=== PATIENT | male | born 1960 | race Caucasian/White ===

== ENCOUNTER 2021-08-22 10:49 | Outpatient (REF) | payer BC, SELFPAY ==
[2021-08-22 14:17] LABS: MANUAL DIFF FLAG NO
[2021-08-22 14:23] LABS: Basophils Percent Auto 0.8 % (0-2); Eosinophils Absolute Auto 0.1 X10*3/uL (0.0-0.4); Hematocrit 45.8 % (42-52); Imm Gran Abs Auto 0.01 X10*3/uL (0.00-0.03); Imm Gran Pct Auto 0.3 % (0.0-0.4); Lymphocytes Absolute Auto 1.3 X10*3/uL (1.2-4.9); Lymphocytes Percent Auto 31.5 % (20-40); Mean Corpuscular HGB Conc 32.8 g/dl (31.0-36.0); Mean Corpuscular Hemoglobin 31.2 pg (27.0-33.0); Mean Corpuscular Volume 95.2 fL (80-98); Mean Platelet Volume 9.8 fL (9.4-12.4); Monocytes Absolute Auto 0.4 X10*3/uL (0.1-1.2); Monocytes Percent Auto 9.8 % (2-11); Neutrophils Absolute Auto 2.2 X10*3/uL (2.0-8.3); Neutrophils Percent Auto 54.6 % (45-73); Platelet Count 188 X10*3/uL (160-400); Red Blood Count 4.81 X10*6/uL (4.60-5.80); Red Cell Distribution Width 12.8 % (11.0-16.0)
[2021-08-22 14:46] LABS: Alanine Aminotransferase 20 U/L (0-40); Albumin Level 4.5 g/dL (3.5-5.0); Alkaline Phosphatase 66 U/L (39-117); Anion Gap 10 (12-20); Aspartate Amino Transferase 22 U/L (5-37); Bilirubin Total 2.3 mg/dL (0.0-1.0); Blood Urea Nitrogen 12 mg/dL (9-16); Calcium 9.5 mg/dL (8.4-10.2); Carbon Dioxide 30 mmol/L (22-29); Chloride 104 mmol/L (96-108); Cholesterol 173 mg/dL; Estimated Glomerular Filt Rate > 60; Glucose Fasting 99 mg/dL (60-99); HDL Cholesterol 59 mg/dL; LDL Cholesterol Calculated 101 mg/dl; Potassium 4.2 mmol/L (3.3-5.1); Sodium 140 mmol/L (135-145); Total Protein 7.3 g/dL (6.5-8.0); Triglycerides 67 mg/dL
[2021-08-22 15:09] LABS: Prostate Specific Antigen Scr 3.14 ng/mL (<0.05-4.0)
[2021-08-22 15:32] LABS: Erythrocyte Sedimentation Rate 5 MM/HR (0-15)
== END 2021-08-22 10:50 | disposition home or self-care (01) ==
LOC: HO.WFDLDS 10:49
PROVIDERS: Visit Provider Family Medicine
DX: Z00.00 Encounter for general adult medical examination without abnormal findings (principal); Z12.5 Encounter for screening for malignant neoplasm of prostate; M25.511 Pain in right shoulder; M25.512 Pain in left shoulder
CPT/HCPCS: 36415; 80053; 80061; 84153; 84443; 85025; 85652

== ENCOUNTER → 2022-12-17 12:18 | Outpatient (BNVA) | payer BC, SELFPAY | PROVIDERS: PCP Family Medicine; Visit Provider Physician Assistant | DX: Z13.89 Encounter for screening for other disorder (principal) ==

== ENCOUNTER 2024-09-21 08:08 | Day surgery (SDC) | payer BC, SELFPAY ==
--- NOTE | 2024-09-20 12:48 | HO.ANESPROP2 ---
Documented by User: Katty Strickland NP 09/20/24 12:48 HPI - Anesthesia Eval Consult details Narrative: 64yo M for Colonoscopy PMFSH Active Problems Active Problems: All Active Problems History of adenomatous polyp of colon (Acute) Strain of right trapezius muscle (Acute) Cerumen impaction (Acute) Elevated blood pressure reading (Acute) Right shoulder pain (Acute) Hearing loss (Acute) Screening for colon cancer (Acute) Screening for prostate cancer (Acute) Adult general medical exam (Acute) Bilateral shoulder pain (Acute) Laboratory exam ordered as part of routine general medical examination (Acute) Past Medical History Medical History Amputation of left index finger Family History Family History Father Cancer Surgical History Surgical History H/O colonoscopy History of amputation of finger of left hand Hx of tonsillectomy Social History Social History Housing: House Patient Tobacco Use Status: Never used Tobacco e-Cigarette/Vaping Use: Never Used Second Hand Smoke Exposure: No Advance Directives: No Advance Directives Information Provided: Yes service: No Current occupational status: employed Current occupation: construction Cognitive needs: No Hearing needs: Yes Meds Allergies Allergy/AdvReac Type Severity Reaction Status Date / Time No Known Allergies Allergy Verified 12/17/22 12:20 Assessment and Plan Assessment Anesthesia Assessment: Chart Reviewed Documented by User: Hattie Lei MD 09/21/24 09:29 PMFSH Past Medical History Medical History Amputation of left index finger Family History Family History Father Cancer Surgical History Surgical History H/O colonoscopy History of amputation of finger of left hand Hx of tonsillectomy History of Problems with Anesthesia: No Social History Social History Housing: House Patient Tobacco Use Status: Never used Tobacco e-Cigarette/Vaping Use: Never Used Second Hand Smoke Exposure: No Advance Directives: No Advance Directives Information Provided: Yes service: No Current occupational status: employed Current occupation: construction Cognitive needs: No Hearing needs: Yes Meds Allergies Allergy/AdvReac Type Severity Reaction Status Date / Time No Known Allergies Allergy Verified 12/17/22 12:20 Exam Airway Mallampati Class: III TM Dist: >3cm Neck ROM: Full Loose/Missing/Broken Teeth: No Heart: RRR Lungs: CTA Assessment and Plan Assessment Anesthesia Assessment: Anesthesia Plan Discussed Final Anesthetic Review History of Problems with Anesthesia: No NPO: Yes ASA Class: II Final Preanesthetic Review: Meds/Allgs Chart Reviewed, Consent Obtained/Reviewed and Anes Risks/Benef Reviewed Patient Risk: Low Procedure Risk: Low Anesthetic Plan Anesthetic Plan: MAC: Disposition: Standard PACU
[2024-09-21] MEDS: Sodium Phosphate,Mono-Dibasic 133 ML ENEMA PR (09:31)
[2024-09-21 09:38] VITALS: BP 163/81; PULSE 63; RESP 16; TEMP 36.8; O2SAT 98; BMI 28.7
[2024-09-21] MEDS: Lactated Ringers 1,000 ML 100 ML IVCONT (09:54)
--- NOTE | 2024-09-21 09:55 | P.HPSUR_ITS ---
Pre-Procedural Eval Section A - 24 Hr Update-Section A only Date of Service: 09/21/24 Section B - Complete if H&P > 30 days Chief Complaint: Encounter for screening for malignant neoplasm of Relevant Family History (Specify if Yes): No Relevant Social History: None Present Medications: see Short Stay Collaborative assessment Medical History: Significant History (Amputation of left index finger) History of Previous Operations: Relevant previous surgery/procedure and date(s) (H/O colonoscopy History of amputation of finger of left hand Hx of tonsillectomy) Allergies: Allergies Allergy/AdvReac Type Severity Reaction Status Date / Time No Known Allergies Allergy Verified 09/21/24 09:36 Review of Systems Sugical H&P ROS: Negative: Constitution, Cardiovascular, Respiratory, Neurological, Psychiatric, Hem-Onc, Allergic/Immunologic, Gastrointestinal, Ge nitourinary, Musculoskeletal, Integumentary, Endocrine and Eyes/Ears/Nose/Throat Exam Surgical H&P Exam: Normal: HEENT, Normal: Heart, Normal: Lungs, Normal: Extremities, Normal: Abdomen, Normal: Skin and Normal: Neurological Plan Diagnosis/Plan: Unchanged I have reviewed the history and physical and performed a pertinent physical examination on my patient. No changes have occurred unless specified. Time Spent With Patient Time: Total time managing care of this patient today ____ minutes.
--- NOTE | 2024-09-21 10:30 | HO.OPN-COLON ---
Colonoscopy Operative Note Operative Note Date of Service: 09/21/24 Narrative: Operative Information Procedure Description: Colonoscopy Indication: screening Anesthesia: MAC COLONOSCOPY Instrument: Olympus variable stiffness pediatric scope 190L Colonoscopy Monitoring: Vital signs and clinical assessment, continuous EKG monitoring, Pulse oximetry, Carbon Dioxide monitoring and blood pressure monitoring were done throughout the procedure. Colon withdrawal time was 16 minutes. Procedure: The patient was placed in the left lateral decubitis position and pre-procedure medications were administered. After a digital rectal examination of the ano-rectum, the video colonoscope was inserted into the rectum and advanced through the colon to the cecum/TI. The colonoscope was slowly withdrawn in a retrograde panoramic fashion and the colon mucosa was carefully examined including a retroflexed view of the rectum. Findings and interventions are described below. Procedure Difficulty: easy Findings: Terminal Ileum-normal Cecum:normal Ascending Colon: normal Transverse Colon -normal Descending Colon:normal Sigmoid Colon: mild diverticulosis Rectum: Retroflexion with small internal hemorrhoids seen, grade I, 12-14 mm semi pedunculated polyp in proximal rectum, injected with 1 cc of epinephrine then removed with cold snare with one clip applied to the base Anorectum - normal Intervention: epinephrine injection, cold snare, clip Colon preparation: [place] Bowel Preparation Scale Right colon; 1-2 Transverse colon: 2 Left colon; 3 (0 = Unprepared colon segment with mucosa not seen due to solid stool that cannot be cleared. 1 = Portion of mucosa of the colon segment seen, but other areas of the colon segment not well seen due to staining, residual stool and/or opaque liquid. 2 = Minor amount of residual staining, small fragments of stool and/or opaque liquid, but mucosa of colon segment seen well. 3 = Entire mucosa of colon segment seen well with no residual staining, small fragments of stool or opaque liquid) Impression and Post Procedure Diagnosis: diverticulosis colon polyp internal hemorrhoids Plan: High fiber diet leaflet Avoid straining at stool, epsom salts and sitz bath, anusol supps or cream Repeat Colonoscopy in 2-3 years or earlier if clinically indicated Above findings were reviewed with the patient and relevant handouts were provided if indicated.
[2024-09-21 10:35] VITALS: BP 113/74; PULSE 61; RESP 18; TEMP 36.1; O2SAT 98
[2024-09-21 10:49] VITALS: BP 125/75; PULSE 62; RESP 16; O2SAT 98
[2024-09-21 11:03] VITALS: BP 134/80; PULSE 56; RESP 16; TEMP 36.3; O2SAT 99
== END 2024-09-21 11:36 | disposition home or self-care (01) ==
PROVIDERS: PCP Family Medicine; Visit Provider Internal Medicine Gastroenterology
PROC: 0DJD8ZZ Inspection of Lower Intestinal Tract, Via Natural or Artificial Opening Endoscopic (ICD-10-PCS; CPT 45378; principal; 2024-09-21 10:00)
DX: Z12.11 Encounter for screening for malignant neoplasm of colon (principal); D12.8 Benign neoplasm of rectum; K57.30 Diverticulosis of large intestine without perforation or abscess without bleeding; K64.0 First degree hemorrhoids; Z86.0101 Personal history of adenomatous and serrated colon polyps
CPT/HCPCS: 45385; 45381; 88305; J2003; J2704

== ENCOUNTER → 2024-09-21 08:08 | Outpatient (BNV) | payer BC, SELFPAY | PROVIDERS: PCP Family Medicine; Visit Provider Internal Medicine Gastroenterology | DX: Z12.11 Encounter for screening for malignant neoplasm of colon (principal); D12.8 Benign neoplasm of rectum; K57.30 Diverticulosis of large intestine without perforation or abscess without bleeding; K64.0 First degree hemorrhoids | CPT/HCPCS: 45381; 45385 ==

== ENCOUNTER 2025-02-03 15:42 | Outpatient (AMB) | payer MEDICARE, BC, SELFPAY ==
--- NOTE | 2025-02-03 15:48 | A.OFFPC_ITS ---
Vital Signs 02/03/25 15:52 02/03/25 15:56 02/03/25 16:39 Height 6 ft Weight 214 lb BMI 29.0 BP 156/86 H 148/84 H 136/82 Blood Pressure Location Rt brachial Rt brachial Rt brachial Position Sitting Sitting Sitting Respiration 14 Pulse 71 Pulse Source Pulse Oximeter Pulse Oximetry (%) 98 Oxygen Delivery Method Room Air Intake Visit Reasons: Annual PE Intake Note: Physical Hiv Cts Specialist Required: No Allergies No Known Allergies Allergy (Verified 02/03/25 15:49) Medication List - Last Reconciled 02/03/25 by Kirt Humphreys MD No Known Home Meds Tobacco use date assessed: 02/03/25 Fall risk assessment: No Falls in past year Last assessed Fall Risk: 02/03/25 Dental Screening Dental Screen Date: 02/03/25 Did you have a dental visit in the last 12 months?: Yes Did you have a dental problem in the last 6 months where you did not have access to dental care?: No Was dental information given to patient?: Patient has dentist HPI Annual PE HPI Details 64 y/o male presents for a CPE with f/u labs and health maintenance. No recent labs to review. Blood pressure today elevated at 156/86, 71p. BP upon relaxation is 136/80. He reports hearing changes/hearing loss. He works as a line construction supervisor. He notes he could exercise more often. [facility] Medical History Amputation of left index finger Surgical History H/O colonoscopy History of amputation of finger of left hand Hx of tonsillectomy Family History (Updated 02/03/25 @ 15:51 by Shantel Leonardo CMA) Father Cancer Social History (Updated 02/03/25 @ 15:51 by Shantel Leonardo CMA) Housing: House Are you a primary youth career specialist to a significant other at home: No Do you presently have visiting nurse or other home services: No Alcohol intake: current Alcohol intake frequency: does not drink Patient Tobacco Use Status: Never used Tobacco e-Cigarette/Vaping Use: Never Used Second Hand Smoke Exposure: No service: No Current occupational status: employed Current occupation: construction Current occupational exposures/hazards: No Cognitive needs: No Hearing needs: Yes Vision needs: No Questionnaire PHQ-9 Over the last 2 weeks, how often have you been bothered by any of the following problems? 1. Little interest or pleasure in doing things: not at all 2. Feeling down, depressed, or hopeless: not at all 3. Trouble falling or staying asleep, or sleeping too much: not at all 4. Feeling tired or having little energy: not at all 5. Poor appetite or overeating: not at all 6. Feeling bad about yourself - or that you are a failure or have let yourself or your family down: not at all 7. Trouble concentrating on things, such as reading the newspaper or watching television: not at all 8. Moving or speaking so slowly that other people could have noticed. Or the opposite - being so fidgety or restless that you have been moving around a lot more than usual: not at all 9. Thoughts that you would be better off or of hurting yourself in some way: not at all Total score: 0 Depression Screening Interpretation: Negative Depression Screening Done: Yes 41602 - PHQ-9 Billing: Yes Source: Developed by Drs. Arvind Saha, Silvia Chinchilla, Jorge Renteria and colleagues, with an educational jovana from [employer]. Thrive Questionnaire Date Thrive assessed: 02/03/25 I am a: Patient What is your living situation today?: I have a steady place to live Within the past 12 months, did the food you bought not last and you didn't have the money to get more?: Never true Within the past 12 months, did you worry whether your food would run out before you got money to buy more?: Never true Do you have trouble paying for medicines?: No Do you have trouble getting transportation to medical appointments?: No Do you have trouble paying your heating and electricity bill?: No Do you have trouble taking care of your child, family member or friend?: No Do you have trouble with day-to-day activities such as bathing, preparing meals, shopping, managing finances, etc.?: No Are you currently unemployed and looking for a job?: No Are you interested in more education?: No Please select the resources that you would like help with: None Currently or been in a relationship where the following occur: No concerns reported THRIVE Score: 0 AUDIT C Alcohol Use Questionnaire (AUDIT-C) 1. How often do you have a drink containing alcohol?: 2-3 times a week 2. How many drinks containing alcohol do you have on a typical day when you are drinking?: 1 or 2 3. How often do you have six or more drinks on one occasion?: Never Total Score: 3 DAVID-7 AMB Questionnaire DAVID-7 Date DAVID - 7 assessed: 02/03/25 Feeling nervous, anxious, or on edge: 0 = Not at all Not being able to stop or control worryin = Not at all Worrying too much about different things: 0 = Not at all Trouble relaxin = Not at all Being so restless that it is hard to sit still: 0 = Not at all Becoming easily annoyed or irritable: 0 = Not at all Feeling afraid as if something awful might happen: 0 = Not at all Total DAVID-7 score (0-4 normal; 5-9 mild; 10-14 moderate; 15-21 severe): 0 Source: Developed by Drs. Arvind Saha, Silvia Chinchilla, Jorge Renteria and colleagues, with an educational jovana from [employer]. DAVID-7 Assessment Billing DAVID-7 Assessment Tool: DAVID-7 Assessment 16022 Review of Systems Const Denies chills, Denies fatigue, Denies fever(s), Denies headache(s) and Denies weakness Eyes Denies change in vision ENT Denies dizziness, Denies headache(s), Denies hearing loss, Denies nasal congestion, Denies sinus pain, Denies sinus pressure and Denies sore throat Card Denies chest pain, Denies lightheadedness, Denies dyspnea and Denies other (palpitations) Resp Denies cough, Denies dyspnea and Denies wheezing GI Denies abdominal pain, Denies melena, Denies hematochezia, Denies change in bowel habits, Denies dyspepsia and Denies nausea Denies hematuria and Denies dysuria Musc Denies abnormal gait, Denies myalgias, Denies arthralgias, Denies numbness and Denies tingling Skin/Breast Denies rash, Denies unusual bruising and Denies wounds Neuro Denies abnormal gait, Denies dizziness, Denies headache(s), Denies memory loss, Denies numbness, Denies Sensory deficit (Neuro), Denies tingling and Denies weakness Psych Denies anxiety, Denies depression and Denies memory loss Endo Denies cold intolerance, Denies fatigue, Denies heat intolerance, Denies polydipsia and Denies polyuria Sanya/Lymph Denies easy bleeding and Denies easy bruising Aller/Immun Denies wheezing Physical exam (Primary Care) Vital Signs: Last Vital Signs Pulse 71 02/03/25 15:52 Resp 14 02/03/25 15:52 BP 148/84 H 02/03/25 15:56 Pulse Ox 98 02/03/25 15:52 Oxygen Delivery Method Room Air 02/03/25 15:52 BMI result Body Mass Index 29.0 Tobacco/Smoking Status: Tobacco use Status Tobacco use date assessed 02/03/25 02/03/25 15:52 Patient Tobacco Use Status Never used Tobacco 02/03/25 15:52 e-Cigarette/Vaping Use Never Used 02/03/25 15:52 PHQ-9: PHQ-9 Score PHQ-9: Total score 0 02/03/25 15:52 Depression Screening Interpretation: Negative Thrive Assessment: Date of Thrive Assessment Date Thrive assessed 02/03/25 02/03/25 15:52 Currently or been in a relationship where the following occur: No concerns reported Const General: no acute distress, well developed, alert and awake Nutritional Appearance: well nourished Orientation/consciousness: patient oriented x3 HENMT Head: Yes normocephalic and Yes atraumatic Ears: hearing grossly normal bilaterally and TM's normal bilaterally General nose exam: Normal external nose present and Normal nares present Mouth: Normal oral and palatal mucosa present and moist mucous membranes Teeth and gingiva: dentition normal Throat: Yes posterior oropharynx normal Eyes General: appearance normal, both eyes and all related structures Pupils: Equal, round and reactive pupils present and Pupil accommodation reflex normal EOM: EOMs intact bilaterally Neck Neck: Yes normal visual inspection, Yes no lymphadenopathy and Yes trachea midline Thyroid: Thyroid normal Carotids: no bruits Lymphatic: no lymphadenopathy noted Chest Chest palpation & inspection: normal inspection of the chest Resp Effort & Inspection: normal respiratory effort Auscultation: clear to auscultation bilaterally Cardio Rate: regular rate Rhythm: regular rhythm Heart sounds: S1 normal heart sound present, S2 normal heart sound present, no gallops, no murmurs and no rubs Bruits: no abdominal aortic bruits and no carotid bruits GI Palpation (GI): No Abdominal aortic bruit present, Soft to palpation, nontender, No hepatosplenomegaly present and No Rebound tenderness present Auscultation: normal bowel sounds General: Yes no CVA tenderness Back/Spine/Pelvis Back: no CVA tenderness Cervical Spine: cervical ROM normal and No Cervical spine tenderness Thoracic/Lumbar Spine: thoraco-lumbar ROM normal, No pain with thoraco-lumbar ROM, No thoracic spinal tenderness and No lumbar spinal tenderness Skin Other: 1cm melanotic lesion with irregular borders and surrounding melanotic macule Lesions: no lesions Rashes: no rashes Trauma: no lacerations or abrasions Wounds: no wounds Nails: normal Neuro General: patient oriented x3 Cranial nerves: Yes Equal, round and reactive pupils present Cognition (Neuro): normal cognition Gait exam (Neuro): Normal gait present Motor exam (neuro): 5/5 motor strength present throughout Sensory Exam: No Sensory deficit (Neuro) Deep tendon reflexes (DTR's): Right patellar reflex intensity grade: 2+ and Left patellar reflex intensity grade: 2+ Extrem General: Yes normal to inspection and No edema Psych Appearance: grossly normal Affect: normal affect Attitude: cooperative Thought process: Normal thought process present Coding Level of Care Code Est Pt Prev Care >65y(06006) Diagnoses Adult general medical exam Z00.00 Elevated blood pressure reading R03.0 Screening for prostate cancer Z12.5 Screening for colon cancer Z12.11 Hearing loss H91.90 Neoplasm of uncertain behavior of skin D48.5 Additional Codes DAVID-7 Assessment Billing - DAVID-7 Assessment Tool: DAVID-7 Assessment 70449 ([id number]) PHQ-9 - 01970 - PHQ-9 Billing: Yes ([id number]) Assessment & Plan Assessment & Plan (1) Adult general medical exam: Code(s): Z00.00 - Encounter for general adult medical examination without abnormal findings Category: Medical Plan: 64-year-old?male?presents?for?complete?physical?exam Encouraged?healthy?diet?with?active?lifestyle?and?plenty?of?exercise (2) Elevated blood pressure reading: Code(s): R03.0 - Elevated blood-pressure reading, without diagnosis of hypertension Category: Medical Plan: Blood?pressure?is?elevated?in?prehypertensive?range?after?relaxation. Will?have?follow-up?in?a?few?months?continue?monitoring (3) Screening for prostate cancer: Code(s): Z12.5 - Encounter for screening for malignant neoplasm of prostate Category: Medical Plan: Check?PSA (4) Screening for colon cancer: Code(s): Z12.11 - Encounter for screening for malignant neoplasm of colon Category: Medical Plan: Recent?colonoscopy?and?history?of?polyps He?was?advised?to?follow-up?in?about?2?years Follow-up?with?GI?as?recommended (5) Hearing loss: Code(s): H91.90 - Unspecified hearing loss, unspecified ear Category: Medical Plan: Significant?hearing?loss?in?left?ear?and?some?in?right He?says?he?has?hearing?aids?but?they?are?not?working. Advised?him?to?call?his?hearing?aid?supplier,?[employer]?for?re-evaluation (6) Neoplasm of uncertain behavior of skin: Code(s): D48.5 - Neoplasm of uncertain behavior of skin Category: Medical Plan: Dark?m elanotic?lesion?approximately?1?cm?in?diameter?with?irregular?borders?and?surrou nded?by color?variegation?and?later?melanotic?macule. Referred?to?Dermatology Orders: Orders Complete Blood Count Auto Diff 02/02/25 Z00.00 - Encounter for general adult medical examination without abnormal findings Microalbumin, Random (w Creat) 02/02/25 I10 - Essential (primary) hypertension Comprehensive [place]. Panel Fast 02/02/25 Z00.00 - Encounter for general adult medical examination without abnormal findings Lipid Panel 02/02/25 Z00.00 - Encounter for general adult medical examination without abnormal findings Prostate Specific Antigen Scr 02/02/25 Z12.5 - Encounter for screening for malignant neoplasm of prostate TSH reflex Free T4 02/02/25 Z00.00 - Encounter for general adult medical examination without abnormal findings UA and rflx microscopic 02/02/25 Z00.00 - Encounter for general adult medical examination without abnormal findings Referrals Dermatology Referral D48.5 - Neoplasm of uncertain behavior of skin
[2025-02-03 15:52] VITALS: BP 156/86; PULSE 71; RESP 14; O2SAT 98; BMI 29.0
[2025-02-03 15:56] VITALS: BP 148/84
[2025-02-03 16:39] VITALS: BP 136/82
== END 2025-02-03 16:38 | disposition home or self-care (01) ==
LOC: HO.HMCFM 15:43
PROVIDERS: PCP Family Medicine; Visit Provider Family Medicine
DX: Z00.00 Encounter for general adult medical examination without abnormal findings (principal); R03.0 Elevated blood-pressure reading, without diagnosis of hypertension; Z12.5 Encounter for screening for malignant neoplasm of prostate; Z12.11 Encounter for screening for malignant neoplasm of colon; H91.93 Unspecified hearing loss, bilateral; D48.5 Neoplasm of uncertain behavior of skin

== ENCOUNTER → 2025-02-03 15:42 | Outpatient (BNVA) | payer BC, SELFPAY | PROVIDERS: PCP Family Medicine; Visit Provider Family Medicine | DX: Z00.00 Encounter for general adult medical examination without abnormal findings (principal); R03.0 Elevated blood-pressure reading, without diagnosis of hypertension; H91.93 Unspecified hearing loss, bilateral; D48.5 Neoplasm of uncertain behavior of skin | CPT/HCPCS: 96127; 99397 ==

== ENCOUNTER 2025-02-07 08:05 | Outpatient (REF) | payer MEDICARE, BC, SELFPAY ==
[2025-02-07 11:22] LABS: MANUAL DIFF FLAG NO
[2025-02-07 11:25] LABS: Appearance Urine Clear; Color Urine Dark Yellow; Glucose Urine UA Negative (Negative); Leukocyte Esterase Urine Negative (Negative); Nitrite Urine Negative (Negative); PH 5.5 (5.0-9.0); Specific Gravity - Urine 1.025 (1.005-1.025); UMIC TRIGGER UA YES; Urine Blood Trace (Negative); Urine Ketones 15 mg/dL (Negative); Urine Protein Trace mg/dL (Neg-Trace)
[2025-02-07 11:27] LABS: Basophils Percent Auto 0.6 % (0-2); Eosinophils Absolute Auto 0.1 X10*3/uL (0.0-0.4); Eosinophils Percent Auto 3.9 % (0-4); Hematocrit 45.4 % (42.0-52.0); Hemoglobin 15.2 g/dl (14.0-18.0); Imm Gran Abs Auto 0.01 X10*3/uL (0.00-0.03); Imm Gran Pct Auto 0.3 % (0.0-0.4); Lymphocytes Percent Auto 27.3 % (20-40); Mean Corpuscular HGB Conc 33.5 g/dl (31.0-36.0); Mean Corpuscular Hemoglobin 31.2 pg (27.0-33.0); Mean Corpuscular Volume 93.2 fL (80.0-98.0); Mean Platelet Volume 9.7 fL (9.4-12.4); Monocytes Absolute Auto 0.4 X10*3/uL (0.1-1.2); Neutrophils Absolute Auto 2.1 x10*3/uL (2.0-8.3); Neutrophils Percent Auto 57.9 % (45-73); Platelet Count 184 X10*3/uL (160-400); Red Blood Count 4.87 X10*6/uL (4.60-5.80); White Blood Count 3.6 X10*3/uL (4.8-10.8)
[2025-02-07 11:29] LABS: Bacteria Urine None Seen (None Seen); Hyaline Casts Urine 0-2 /LPF (0-2); RBC Urine 0-2 /HPF (0-2); Squamous Epithelial Cell Urine 0-2 /HPF (0-2); WBC Urine 0-5 /HPF (0-5)
[2025-02-07 12:13] LABS: Creatinine Urine 295.19 mg/dL; Microalbum/Creatinine Ratio Ur 8.4 ug/mg cr (<30)
[2025-02-07 12:16] LABS: Alanine Aminotransferase 24 U/L (0-40); Albumin Level 4.1 g/dL (3.5-5.0); Alkaline Phosphatase 64 U/L (39-117); Anion Gap 9 (12-20); Aspartate Amino Transferase 25 U/L (5-37); Bilirubin Total 2.3 mg/dL (0.0-1.0); Blood Urea Nitrogen 12 mg/dL (9-16); Calcium 9.4 mg/dL (8.4-10.2); Carbon Dioxide 28 mmol/L (22-29); Chloride 107 mmol/L (96-108); Cholesterol 158 mg/dL (<200); Estimated Glomerular Filt Rate > 60; Glucose Fasting 102 mg/dL (60-99); HDL Cholesterol 48 mg/dL (>40); LDL Cholesterol Calculated 91 mg/dL (<100); Potassium 4.1 mmol/L (3.3-5.1); Sodium 140 mmol/L (135-145); Total Protein 7.1 g/dL (6.5-8.0); Triglycerides 95 mg/dL (<150)
[2025-02-07 12:17] LABS: Prostate Specific Antigen Scr 4.45 ng/mL (<0.05-4.0)
== END 2025-02-07 08:06 | disposition home or self-care (01) ==
LOC: HO.WFDLDS 08:05
PROVIDERS: Visit Provider Family Medicine
DX: Z00.00 Encounter for general adult medical examination without abnormal findings (principal); I10 Essential (primary) hypertension; Z13.220 Encounter for screening for lipoid disorders; Z13.29 Encounter for screening for other suspected endocrine disorder; Z13.9 Encounter for screening, unspecified; Z12.5 Encounter for screening for malignant neoplasm of prostate
CPT/HCPCS: 36415; 80053; 80061; 81001; 82043; 82570; 84153; 84443; 85025

== ENCOUNTER 2025-03-09 08:55 | Outpatient (AMB) | payer MEDICARE, BC, SELFPAY ==
--- NOTE | 2025-03-09 08:52 | MHC.PC.OV ---
Intake Visit Reasons: f/u CPE-labs via telemedicine Intake Note: patient is scheduled for lab review Allergies No Known Allergies Allergy (Verified 03/09/25 08:53) Medication List - Last Reconciled 03/09/25 by Kirt Humphreys MD No Known Home Meds Tobacco use date assessed: 02/03/25 Dental Screening Dental Screen Date: 02/03/25 HPI f/u CPE-labs via telemedicine HPI Details 64 y/o male presents to f/u labs via telemedicine. Labs drawn 02/07/25. Reviewed labs with pt. Fasting glucose 102. Triglycerides 95. TC 158. LDL 91. HDL 48. PSA elevated at 4.45. Denies any changes to his urine stream. PFSH Medical History Amputation of left index finger Surgical History H/O colonoscopy History of amputation of finger of left hand Hx of tonsillectomy Family History (Updated 02/03/25 @ 15:51 by Shantel Leonardo CMA) Father Cancer Social History (Updated 02/03/25 @ 15:51 by Shantel Leonardo CMA) Housing: House Are you a primary home care and home health aides teacher to a significant other at home: No Do you presently have visiting nurse or other home services: No Alcohol intake: current Alcohol intake frequency: does not drink Patient Tobacco Use Status: Never used Tobacco e-Cigarette/Vaping Use: Never Used Second Hand Smoke Exposure: No service: No Current occupational status: employed Current occupation: construction Current occupational exposures/hazards: No Cognitive needs: No Hearing needs: Yes Vision needs: No Questionnaire Thrive Questionnaire Date Thrive assessed: 02/03/25 DAVID-7 AMB Questionnaire DAVID-7 Date DAVID - 7 assessed: 02/03/25 Source: Developed by Drs. Arvind Saha, Silvia Chinchilla, Jorge Renteria and colleagues, with an educational jovana from [employer]. Review of Systems Const Denies chills, Denies fatigue, Denies fever(s), Denies headache(s) and Denies weakness ENT Denies dizziness and Denies headache(s) Card Denies dyspnea Resp Denies cough, Denies dyspnea, Denies wheezing and Denies other (shortness of breath) Musc Denies numbness and Denies tingling Neuro Denies dizziness, Denies headache(s), Denies numbness, Denies tingling and Denies weakness Psych Denies anxiety and Denies depression Endo Denies fatigue Aller/Immun Denies wheezing Physical exam (Primary Care) Tobacco/Smoking Status: Tobacco use Status Tobacco use date assessed 02/03/25 03/09/25 08:54 Patient Tobacco Use Status Never used Tobacco 03/09/25 08:54 e-Cigarette/Vaping Use Never Used 03/09/25 08:54 Thrive Assessment: Date of Thrive Assessment Date Thrive assessed 02/03/25 03/09/25 08:54 Telehealth Telehealth Telehealth Platform: Telephone Location of provider rendering services: practice address Location of patient: address on file Patient Identification confirmed using: Name, : Yes Telehealth method: voice only Patient verbally consented to treatment: Yes Patient verbally consented to billing insurance company: Yes Patient informed of any privacy concerns related to visit: Yes Coding Level of Care Code Tele Est Pt Level 2 (72354) Diagnoses Elevated fasting glucose R73.01 Elevated PSA R97.20 Immunization counseling Z71.85 Assessment & Plan Assessment & Plan (1) Elevated fasting glucose: Code(s): R73.01 - Impaired fasting glucose Category: Medical Plan: Mildly?elevated?fasting?blood?sugar Will?recheck?this?with?next?blood?draw (2) Elevated PSA: Code(s): R97.20 - Elevated prostate specific antigen [PSA] Category: Medical Plan: Elevated?PSA?level. Asymptomatic Will?repeat?PSA?level?and?follow-up?with?patient (3) Immunization counseling: Code(s): Z71.85 - Encounter for immunization safety counseling Category: Medical Plan: Reviewed?immunizations?with?patient He?is?up-to-date?with?his ?pneumonia?20?shot Recommended?RSV,?next?COVID?shot,?shingles?shot?in he?will?get?his?flu?shot?in?fall. He?will?also?be?due?for?his?Tdap?in?2025 Orders: Orders Hemoglobin A1c Today R73.01 - Impaired fasting glucose Prostate Specific Antigen Scr Today R97.20 - Elevated prostate specific antigen [PSA], Z12.5 - Encounter for screening for malignant neoplasm of prostate Comprehensive [place]. Panel Fast Today R73.01 - Impaired fasting glucose, Z00.00 - Encounter for general adult medical examination without abnormal findings Complete Blood Count Auto Diff Today R73.01 - Impaired fasting glucose, Z00.00 - Encounter for general adult medical examination without abnormal findings
== END 2025-03-09 17:05 | disposition home or self-care (01) ==
LOC: HO.HMCFM 08:55
PROVIDERS: PCP Family Medicine; Visit Provider Family Medicine
DX: R73.01 Impaired fasting glucose (principal); R97.20 Elevated prostate specific antigen [PSA]; Z71.85 Encounter for immunization safety counseling

== ENCOUNTER → 2025-03-09 08:55 | Outpatient (BNVA) | payer MEDICARE, BC, SELFPAY | PROVIDERS: PCP Family Medicine; Visit Provider Family Medicine | DX: Z13.89 Encounter for screening for other disorder (principal) ==

== ENCOUNTER 2025-04-12 08:06 | Outpatient (AMB) | payer MEDICARE, BC, SELFPAY ==
[2025-04-12 08:07] VITALS: BP 132/80; PULSE 62; TEMP 36.6; O2SAT 98; BMI 29.0
--- NOTE | 2025-04-12 08:07 | AM.OFFWIN_ITS ---
Intake Vital Signs 04/12/25 08:07 Height 6 ft Weight 214 lb BMI 29.0 BP 132/80 Blood Pressure Location Lt brachial Position Sitting Pulse 62 Pulse Source Pulse Oximeter Temp 97.9 F Temp Source Oral Pulse Oximetry (%) 98 Oxygen Delivery Method Room Air Intake Visit Reasons: EP wax removal Patient Tobacco Use Status: Never used Tobacco Allergies No Known Allergies Allergy (Verified 04/12/25 08:16) Do you need a note to return to daycare/school/sports/work: Yes HPI HPI Comments History of Present Illness Details History - The patient is a 64-year-old male pres enting with cerumen removal prior to a hearing test. - The patient is scheduled to receive he aring aids and needs a hearing test; however, his ears are blocked with cerumen. - He has a history of having his ears cl eaned previously and is familiar with the procedure. - He has not used any ear drops recently to alleviate the blockage. - No additional symptoms such as ear sisi n, dizziness, or fever have been reported. Physical Exam General: Cooperative, healthy appearing, comfortable and no acute distress Orientation/consciousness: Patient oriented x3 Limitations: No limitations Head: Normal to inspection Ears: Hearing grossly normal bilaterally, external ears normal and TM's cerumen impaction bilaterally Nose: Normal external nose present, Normal nares present and No nasal discharge present Face and sinus: Normal facial exam and Yes sinuses nontender Mouth: Normal oral and palatal mucosa present and moist mucous membranes Throat: Yes tonsils normal, Yes uvula midline. Posterior oropharynx erythema Eyes: Appearance normal, both eyes and all related structures Neck: Normal visual inspection Respiratory: Normal respiratory effort, able to speak in complete sentences, no respiratory distress, not tachypneic, no tripod positioning and no use of accessory muscles Skin: No rashes or lesions noted Neuro: Patient oriented x3 Extremities: Normal to inspection and Yes no clubbing, cyanosis or edema PFSH Medical History Amputation of left index finger Surgical History H/O colonoscopy History of amputation of finger of left hand Hx of tonsillectomy Family History (Updated 02/03/25 @ 15:51 by Shantel Leonardo CMA) Father Cancer Social History (Updated 02/03/25 @ 15:51 by Shantel Leonardo CMA) Housing: House Are you a primary pharmacist critical care to a significant other at home: No Do you presently have visiting nurse or other home services: No Alcohol intake: current Alcohol intake frequency: does not drink Patient Tobacco Use Status: Never used Tobacco e-Cigarette/Vaping Use: Never Used Second Hand Smoke Exposure: No service: No Current occupational status: employed Current occupation: construction Current occupational exposures/hazards: No Cognitive needs: No Hearing needs: Yes Vision needs: No Review of Systems Const All systems reviewed & are unremarkable except as noted in HPI and below Physical Exam Vital Signs: Last Vital Signs Temp 97.9 F 04/12/25 08:07 Pulse 62 04/12/25 08:07 BP 132/80 04/12/25 08:07 Pulse Ox 98 04/12/25 08:07 Oxygen Delivery Method Room Air 04/12/25 08:07 BMI result Body Mass Index 29.0 Office Procedures Cerumen Removal From which ear canal was the cerumen removed: bilateral Removal: irrigation Notes: patient tolerated procedure well, no complications and ear canal clear [id number] Irrigation/Lavage Assessment & Plan Assessment & Plan (1) Bilateral impacted cerumen: Code(s): H61.23 - Impacted cerumen, bilateral Plan: The plan involves the removal of cerumen to enable a subsequent hearing test for hearing aid fitting. The patient is aware of the procedure, having undergone it before. Justice will perform the removal, and I will reassess post-procedure to ensure complete clearance. The patient will be monitored for dizziness during removal, with breaks as needed. As no ear drops were used previously, mechanical removal is indicated. Confirmation of cerumen clearance will occur post- procedure. Patient was informed and verbally consented to the use of an ambient scribe for clinic note documentation during this visit (2) Otitis externa: Code(s): H60.90 - Unspecified otitis externa, unspecified ear Qualifiers: Otitis externa type: diffuse Chronicity: acute Laterality: right Qualified Code(s): H60.311 - Diffuse otitis externa, right ear Plan: TMs flushed bilaterally successfully, there was a small piece of plastic likely from a previous hearing aid that was flushed out, once it was removed, there was erythema with purulence, we will treat for otitis externa. Medications: New baotrstw-vglocuncg-JW 3.5-10,000-1 mg/mL-unit/mL-% 4 drps otic (ear) left Q8H 7 days 10 mL 0RF Coding Level of Care Code Est Pt Level 3 (12572) Diagnoses Bilateral impacted cerumen H61.23 Acute diffuse otitis externa of right ear H60.311 Otitis externa type: diffuse Chronicity: acute Laterality: right CPT Codes Office Procedure - CPT: 03710-Oay Irrigation/Lavage ([id number])
== END 2025-04-12 09:28 | disposition home or self-care (01) ==
PROVIDERS: PCP Family Medicine; Visit Provider Physician Assistant
DX: H61.23 Impacted cerumen, bilateral (principal); H60.311 Diffuse otitis externa, right ear

== ENCOUNTER → 2025-04-12 08:06 | Outpatient (BNVA) | payer MEDICARE, BC, SELFPAY | PROVIDERS: PCP Family Medicine; Visit Provider Physician Assistant | DX: H61.23 Impacted cerumen, bilateral (principal); H60.311 Diffuse otitis externa, right ear | CPT/HCPCS: 69209; 99212 ==

== ENCOUNTER 2025-05-09 10:01 | Outpatient (REF) | payer MEDICARE, BC, SELFPAY ==
[2025-05-09 12:53] LABS: MANUAL DIFF FLAG NO
[2025-05-09 13:06] LABS: Basophils Percent Auto 0.9 % (0-2); Eosinophils Absolute Auto 0.1 X10*3/uL (0.0-0.4); Eosinophils Percent Auto 1.8 % (0-4); Hematocrit 44.1 % (42.0-52.0); Imm Gran Abs Auto 0.01 X10*3/uL (0.00-0.03); Imm Gran Pct Auto 0.3 % (0.0-0.4); Lymphocytes Absolute Auto 1.1 X10*3/uL (1.2-4.9); Lymphocytes Percent Auto 31.6 % (20-40); Mean Corpuscular Hemoglobin 31.1 pg (27.0-33.0); Mean Corpuscular Volume 91.5 fL (80.0-98.0); Mean Platelet Volume 9.9 fL (9.4-12.4); Monocytes Absolute Auto 0.3 X10*3/uL (0.1-1.2); Monocytes Percent Auto 9.3 % (2-11); Neutrophils Absolute Auto 1.9 x10*3/uL (2.0-8.3); Neutrophils Percent Auto 56.1 % (45-73); Platelet Count 218 X10*3/uL (160-400); Red Blood Count 4.82 X10*6/uL (4.60-5.80); White Blood Count 3.3 X10*3/uL (4.8-10.8)
[2025-05-09 13:19] LABS: Estimated Average Glucose 114 mg/dL; Hemoglobin A1C 148.4181 umol/L; Hemoglobin A1c % 5.6 % (<6.0)
[2025-05-09 13:27] LABS: Alanine Aminotransferase 31 U/L (0-40); Albumin Level 4.5 g/dL (3.5-5.0); Alkaline Phosphatase 65 U/L (39-117); Anion Gap 14 (12-20); Aspartate Amino Transferase 33 U/L (5-37); Bilirubin Total 2.5 mg/dL (0.0-1.0); Blood Urea Nitrogen 14 mg/dL (9-16); Carbon Dioxide 23 mmol/L (22-29); Chloride 108 mmol/L (96-108); Estimated Glomerular Filt Rate > 60; Glucose Fasting 102 mg/dL (60-99); Sodium 141 mmol/L (135-145); Total Protein 7.4 g/dL (6.5-8.0)
[2025-05-09 13:37] LABS: Prostate Specific Antigen Scr 5.11 ng/mL (<0.05-4.0)
== END 2025-05-09 10:02 | disposition home or self-care (01) ==
LOC: HO.HMGCLDS 10:01
PROVIDERS: PCP Family Medicine; Visit Provider Family Medicine
DX: R73.01 Impaired fasting glucose (principal); R03.0 Elevated blood-pressure reading, without diagnosis of hypertension; R97.20 Elevated prostate specific antigen [PSA]; H91.90 Unspecified hearing loss, unspecified ear; Z12.5 Encounter for screening for malignant neoplasm of prostate
CPT/HCPCS: 36415; 80053; 83036; 84153; 85025; 99212

== ENCOUNTER 2025-05-09 15:28 | Outpatient (AMB) | payer MEDICARE, BC, SELFPAY ==
--- NOTE | 2025-05-09 15:55 | A.OFFPC_ITS ---
Vital Signs 05/09/25 15:56 05/09/25 15:59 Height 6 ft Weight 222 lb 2 oz BMI 30.1 BP 144/69 H 130/66 Blood Pressure Location Rt brachial Rt brachial Position Sitting Sitting Respiration 14 Pulse 58 Pulse Source Pulse Oximeter Temp 97.7 F Temp Source Oral Pulse Oximetry (%) 97 Oxygen Delivery Method Room Air Intake Visit Reasons: f/u elevated BP reading /labs Intake Note: patient is scheduled for lab review and htn [place] Required: No Allergies No Known Allergies Allergy (Verified 05/09/25 15:58) Medication List - Last Reconciled 05/09/25 by Kirt Humphreys MD No Known Home Meds Tobacco use date assessed: 02/03/25 Dental Screening Dental Screen Date: 02/03/25 HPI f/u elevated BP reading /labs HPI Details 64 y/o male presents to f/u elevated BPs . Also f/u on mildly elevated fasting blood sugars and elevated PSAs. Blood pressure today 130/66, 58p. He notes he could watch the salt/sodium in his diet. Labs drawn 05/09/25. Reviewed labs with pt. A1c 5.6%. Fasting glucose 102. PSA elevated at 5.11. Pt reports he had went for a hearing test and they had noted hearing changes. He reports they feel changes are due to a mechanical issue. HPI Comments History of Present Illness Details Documentation assistance for Kirt Humphreys MD, was provided by Tone Fernandez, Maintenance Supervisor Electrical on 05/09/2025 at 4:44 PM EST. I, Dr. Humphreys, have read, observed, and verified documentation. [facility] Medical History Amputation of left index finger Surgical History H/O colonoscopy History of amputation of finger of left hand Hx of tonsillectomy Family History (Updated 02/03/25 @ 15:51 by Shantel Leonardo CMA) Father Cancer Social History (Updated 02/03/25 @ 15:51 by Shantel Leonardo CMA) Housing: House Are you a primary senior care specialist to a significant other at home: No Do you presently have visiting nurse or other home services: No Alcohol intake: current Alcohol intake frequency: does not drink Patient Tobacco Use Status: Never used Tobacco e-Cigarette/Vaping Use: Never Used Second Hand Smoke Exposure: No service: No Current occupational status: employed Current occupation: construction Current occupational exposures/hazards: No Cognitive needs: No Hearing needs: Yes Vision needs: No Questionnaire Thrive Questionnaire Date Thrive assessed: 02/03/25 I am a: Patient What is your living situation today?: I have a steady place to live Within the past 12 months, did the food you bought not last and you didn't have the money to get more?: Never true Within the past 12 months, did you worry whether your food would run out before you got money to buy more?: Never true Do you have trouble paying for medicines?: No Do you have trouble getting transportation to medical appointments?: No Do you have trouble paying your heating and electricity bill?: No Do you have trouble taking care of your child, family member or friend?: No Do you have trouble with day-to-day activities such as bathing, preparing meals, shopping, managing finances, etc.?: No Are you currently unemployed and looking for a job?: No Are you interested in more education?: No Please select the resources that you would like help with: None Currently or been in a relationship where the following occur: No concerns reported THRIVE Score: 0 DAVID-7 AMB Questionnaire DAVID-7 Date DAVID - 7 assessed: 02/03/25 Source: Developed by Drs. Arvind Saha, Silvia Chinchilla, Jorge Renteria and colleagues, with an educational jovana from [employer]. Review of Systems Const Denies chills, Denies fatigue, Denies fever(s), Denies headache(s) and Denies weakness ENT Denies dizziness and Denies headache(s) Card Denies dyspnea Resp Denies cough, Denies dyspnea, Denies wheezing and Denies other (shortness of breath) Musc Denies numbness and Denies tingling Neuro Denies dizziness, Denies headache(s), Denies numbness, Denies tingling and Denies weakness Psych Denies anxiety and Denies depression Endo Denies fatigue Aller/Immun Denies wheezing Physical exam (Primary Care) Vital Signs: Last Vital Signs Temp 97.7 F 05/09/25 15:56 Pulse 58 05/09/25 15:56 Resp 14 05/09/25 15:56 BP 130/66 05/09/25 15:59 Pulse Ox 97 05/09/25 15:56 Oxygen Delivery Method Room Air 05/09/25 15:56 BMI result Body Mass Index 30.1 Tobacco/Smoking Status: Tobacco use Status Tobacco use date assessed 02/03/25 05/09/25 16:00 Patient Tobacco Use Status Never used Tobacco 05/09/25 16:00 e-Cigarette/Vaping Use Never Used 05/09/25 16:00 Thrive Assessment: Date of Thrive Assessment Date Thrive assessed 02/03/25 05/09/25 16:00 Currently or been in a relationship where the following occur: No concerns reported Const General: well developed; No acute distress Nutritional Appearance: well nourished Orientation/consciousness: patient oriented x3 HENMT Head: Yes normocephalic and Yes atraumatic Eyes General: appearance normal, both eyes and all related structures Pupils: Equal, round and reactive pupils present EOM: EOMs intact bilaterally Resp Effort & Inspection: normal respiratory effort Auscultation: clear to auscultation bilaterally Cardio Rate: regular rate Rhythm: regular rhythm Heart sounds: S1 normal heart sound present, S2 normal heart sound present, no gallops, no murmurs and no rubs Neuro General: patient oriented x3 and gait normal Cranial nerves: Yes Equal, round and reactive pupils present Psych Affect: normal affect Coding Level of Care Code Est Pt Level 4 (01784) Diagnoses Elevated fasting glucose R73.01 Elevated blood pressure reading R03.0 Elevated PSA R97.20 Hearing loss H91.90 Change in hearing H91.90 Assessment & Plan Assessment & Plan (1) Elevated fasting glucose: Code(s): R73.01 - Impaired fasting glucose Category: Medical Plan: A1c?5.6% Top normal. Encouraged?a?diet?lower?in?sugars?and?starches Will?continue?to?monitor (2) Elevated blood pressure reading: Code(s): R03.0 - Elevated blood-pressure reading, without diagnosis of hypertension Category: Medical Plan: Prehypertensive Encouraged?a?diet?lower?in?salt/sodium Encouraged?exercise?and?weight?loss Discussed?medication?but?patient?would?like?to?try?above?lifestyle?changes?1st. Will?continue?to?monitor (3) Elevated PSA: Code(s): R97.20 - Elevated prostate specific antigen [PSA] Category: Medical Plan: Elevated?PSA?x2 Referred?to?urology (4) Hearing loss: Code(s): H91.90 - Unspecified hearing loss, unspecified ear Category: Medical Plan: Patient?was?seen?by?audiology Has?wax?impactions Also?notes?that?some?hearing?deficits?clear?with Valsalva?maneuver May?have?Eustachian?tube?dysfunction?with?serous?otitis?though?currently?has?wax obstruction. Referred?to?ENT He?can?try?Flonase Also?advised?Debrox?drops?but?patient?says?this?made?it?worse?in?the?past (5) Change in hearing: Code(s): H91.90 - Unspecified hearing loss, unspecified ear Category: Medical Plan: As?above,?referred?to?ENT Orders: Referrals Urology Referral R97.20 - Elevated prostate specific antigen [PSA] Ear/Nose/Throat Referral H91.90 - Unspecified hearing loss, unspecified ear Medications: New fluticasone propionate 50 mcg/actuation (Flonase Allergy Relief) administer into each nostril 1 spray intranasal Q12H 16 grams 2RF 30 days
[2025-05-09 15:56] VITALS: BP 144/69; PULSE 58; RESP 14; TEMP 36.5; O2SAT 97; BMI 30.1
[2025-05-09 15:59] VITALS: BP 130/66
== END 2025-05-09 16:56 | disposition home or self-care (01) ==
LOC: HO.HMCFM 15:29
PROVIDERS: PCP Family Medicine; Visit Provider Family Medicine
DX: R73.01 Impaired fasting glucose (principal); R03.0 Elevated blood-pressure reading, without diagnosis of hypertension; R97.20 Elevated prostate specific antigen [PSA]; H91.90 Unspecified hearing loss, unspecified ear

== ENCOUNTER 2025-07-05 12:41 | Outpatient (AMB) | payer MEDICARE, BC, SELFPAY ==
--- NOTE | 2025-07-05 12:58 | MHC.OFFVIS ---
Intake Visit Reasons: elevated PSA Intake Note: Patient is present for ELEVATED PSA Urology Medication:NONE Antibiotic Allergy:NONE Blood Thinner:NONE Soft Boarder Required: No Allergies No Known Allergies Allergy (Verified 07/05/25 13:35) Medication List - Last Reconciled 07/05/25 by AMCHO Villalpando- fluticasone propionate 50 mcg/actuation (Flonase Allergy Relief) 1 spray intranasal Q12H 30 days HPI Comments Details: Hang is a very pleasant 65-year-old male patient of Dr. Humphreys. He presents to the office today as a new patient for an elevated PSA. In discussion with the patient today he reports having followed up with his PCP and was noted to have an elevated PSA and recommendations were made for urology referral for further assessment evaluation. In review of patient's chart it appears PSAs are as follows: PSA 09/05 3.1, 02/07 4.5, 05/10 5.2 When asked he denies any known family history of prostate cancer. SHEA was performed smooth no nodules or masses palpated. When asked he does report noting change in urinary stream however does not find this bothersome. He otherwise denies urinary urgency, urinary frequency, incontinence, nocturia, hematuria, dysuria, foul smelling urine, changes to urinary stream, flank pain, fever, and or chills. He is happy with his current voiding parameters. We did discussed at length potential causes of elevated PSA as well as further treatment options and risks and benefits of these treatment options. We discussed redraw of PSA with total and free; no sex the night before, no caffeine morning of, and no heavy lifting 1-2 days prior. We also discussed obtaining retroperitoneal ultrasound for further assessment evaluation. All questions were answered. In office urinalysis results reviewed with the patient today. He otherwise offers no other issues or concerns at this time. Discussion Notes I discussed with the patient that his PSA levels have been progressively increasing, with the most recent value being 5.2, which is above the normal range. We talked about potential causes for elevated PSA. I recommended further testing, including a repeat PSA test with additional markers to assess prostate volume, and a digital rectal examination was performed to rule out any palpable abnormalities. Plan The patient will undergo a repeat PSA test with additional markers to evaluate prostate volume, as previous tests indicated elevated levels. A digital rectal examination was performed, revealing no palpable abnormalities. The patient should abstain from caffeine, alcohol, heavy lifting, and sexual activity before the next PSA test to avoid temporary PSA elevation. An ultrasound will be conducted to assess prostate size and exclude significant enlargement or other issues. Follow-up appointments will be scheduled to discuss test results and decide on further management steps. [facility] Medical History Amputation of left index finger Surgical History H/O colonoscopy History of amputation of finger of left hand Hx of tonsillectomy Family History (Updated 02/03/25 @ 15:51 by Shantel Leonardo CMA) Father Cancer Social History (Updated 02/03/25 @ 15:51 by Shantel Leonardo CMA) Housing: House Are you a primary manager progressive care to a significant other at home: No Do you presently have visiting nurse or other home services: No Alcohol intake: current Alcohol intake frequency: does not drink Patient Tobacco Use Status: Never used Tobacco e-Cigarette/Vaping Use: Never Used Second Hand Smoke Exposure: No service: No Current occupational status: employed Current occupation: construction Current occupational exposures/hazards: No Cognitive needs: No Hearing needs: Yes Vision needs: No Review of Systems Const All systems reviewed & are unremarkable except as noted in HPI and below Physical Exam Const General: cooperative, healthy appearing, comfortable, no acute distress, well developed, alert and awake Orientation/consciousness: patient oriented x3 Limitations: no limitations HEENT Head: Yes normal to inspection, Yes normocephalic and Yes atraumatic Ears: hearing grossly normal bilaterally Eyes General: appearance normal, both eyes and all related structures Neck Neck: Yes normal visual inspection and Yes trachea midline Chest Chest palpation & inspection: normal inspection of the chest Resp Effort & Inspection: normal respiratory effort and able to speak in complete sentences Cardio Rate: regular rate GI Inspection: Yes normal to inspection General: Yes no CVA tenderness Back/Spine/Pelvis Back: no CVA tenderness Skin General skin exam: no rashes or lesions noted Neuro General: patient oriented x3 Extrem General: Yes normal to inspection Psych Appearance: grossly normal and well kempt Mental Status: mental status grossly normal Speech and movement: Normal speech and movement present and Clear speech present Affect: normal affect Attitude: cooperative Thought process: Normal thought process present Thought content: Normal thought content present Insight: Fair insight present (Psych) Judgement: Fair judgement present (Psych) Results AMB Urinalysis, Automated UA Leukoctes 0 Rissa/uL Last Edit by DIANA Neves on 07/05/25 13:28 UA Nitrite Negative Last Edit by Fco Rosario CCM on 07/05/25 13:28 UA Urobilinogen 0.2 mg/dL Last Edit by Fco Rosario [facility] on 07/05/25 13:28 UA Protein 15 mg/dL Last Edit by Fco Rosario [facility] on 07/05/25 13:28 UA pH 6.0 Last Edit by Fco Rosario [facility] on 07/05/25 13:28 UA Blood 25 Jass/uL Last Edit by Fco Rosraio [facility] on 07/05/25 13:28 UA Specific [place] 1.030 Last Edit by Fco Rosario CCM on 07/05/25 13:28 UA Ketone Negative Last Edit by Fco Rosario [facility] on 07/05/25 13:28 UA Bilirubin 0 mg/dL Last Edit by Fco Rosario [facility] on 07/05/25 13:28 UA Glucose 0 mg/dL Last Edit by Fco Rosario [facility] on 07/05/25 13:28 Results Reviewed Results Reviewed: Laboratory Last Values Urine pH (Auto) 6.0 07/05/25 13:26 Specific [place] (Auto) 1.030 07/05/25 13:26 Urine Protein (Auto) 15 mg/dL 07/05/25 13:26 Glucose (UA)(Auto) 0 mg/dL 07/05/25 13:26 Urine Ketones (Auto) Negative 07/05/25 13:26 Urine Blood (Auto) 25 Jass/uL 07/05/25 13:26 Urine Nitrite (Auto) Negative 07/05/25 13:26 Urine Bilirubin (Auto) 0 mg/dL 07/05/25 13:26 Urine Urobilinogen (Auto) 0.2 mg/dL 07/05/25 13:26 Leukocyte Esterase (Auto) 0 Rissa/uL 07/05/25 13:26 Assessment & Plan Assessment & Plan (1) Elevated PSA: Code(s): R97.20 - Elevated prostate specific antigen [PSA] Category: Medical Plan In office urinalysis results with the patient today; as noted above. Recent PSA results reviewed with the patient today; as noted above. We discussed potential causes of elevated PSA as well as further treatment options and risks and benefits of these treatment options. He denies any bothersome urinary issues. He reports be happy with current voiding parameters. SHEA was performed. Will obtain redraw of PSA Will obtain retroperitoneal ultrasound for further assessment evaluation. Follow-up in 1-2 months with labs and imaging; or sooner with any issues, concerns, and or questions. Orders: Orders US retroperitoneal comp Today R97.20 - Elevated prostate specific antigen [PSA] PSA,Total (Free>4and<10) Today R97.20 - Elevated prostate specific antigen [PSA] AMB Urinalysis Automated Today Z13.9 - Encounter for screening, unspecified Patient Instructions: The patient had an opportunity to ask questions regarding the treatment plan. All questions were answered. Physical exam, labs, and imaging were discussed and reviewed in detail. As well as risks, benefits, and discussion of treatment choices. No major barriers to understanding were identified. The patient expressed understanding and agreement with the above treatment plan. The patient was made aware they should contact our office by phone for worsening of their current condition, the appearance of new symptoms, or with any questions or concerns. Compliance is encouraged with any medications and follow up testing that is ordered. It is a privilege to be allowed the opportunity to participate in? your urological care.? Again, if you have any questions or concerns If you have any questions or concerns please do not hesitate to contact me. The office is [phone]. This note is constructed using voice recognition software. While every effort has been made to ensure accuracy legal adviser errors may have been included. Yours sincerely, ANTONETTE Villalpando Coding Level of Care Code New Pt Level 3 (87417) Diagnoses Elevated PSA R97.20
== END 2025-07-05 13:40 | disposition home or self-care (01) ==
LOC: HO.HUSH 12:41
PROVIDERS: PCP Family Medicine; Visit Provider Nurse Practitioner Family
DX: Z13.9 Encounter for screening, unspecified (principal); R97.20 Elevated prostate specific antigen [PSA]
CPT/HCPCS: 99203

== ENCOUNTER → 2025-07-05 12:41 | Outpatient (BNVA) | payer MEDICARE, BC, SELFPAY | PROVIDERS: PCP Family Medicine; Visit Provider Nurse Practitioner Family | DX: R97.20 Elevated prostate specific antigen [PSA] (principal); Z13.9 Encounter for screening, unspecified | CPT/HCPCS: 81003; 99202 ==

== ENCOUNTER 2025-09-18 08:43 | Outpatient (REF) | payer MEDICARE, BC, SELFPAY ==
--- NOTE | ~2025-09-18 | US_ITS ---
EXAMINATION: US RETROPERITONEUM HISTORY: R97.20 - Elevated prostate specific antigen [PSA] TECHNIQUE: Real-time grayscale ultrasound imaging of the kidneys was performed and images were reviewed. COMPARISON: There are no prior studies available for comparison. FINDINGS: Right kidney: The right kidney measures 10.5 x 6.3 x 5.5 cm. Renal parenchymal echotexture and thickness are normal. There are no masses. There is no hydronephrosis or renal calculi. Left Kidney: The left kidney measures 10.7 x 5.7 x 5.4 cm. Renal parenchymal echotexture and thickness are normal. There are no masses. There is no hydronephrosis or renal calculi. The urinary bladder is unremarkable. Bilateral ureteral jets are identified. Before voiding, the urinary bladder measured 9.0 x 8.6 x 6.5 cm, for an estimated volume of 261 mL. After voiding, the urinary bladder measured 5.3 x 4.7 x 4.2 cm, for an estimated volume of 54 mL. The prostate measures 5.1 x 3.6 x 5.0 cm, for an estimated volume of 47.8 mL. US/US retroperitoneal comp IMPRESSION: 1. Unremarkable retroperitoneal ultrasound. 2. Post void bladder residual of 54 mL. 3. Prostate volume of 47.8 mL. Electronically signed by: Arvind Lauren MD 09/18/2025 09:19 AM [facility] [place]
== END 2025-09-18 08:44 | disposition home or self-care (01) ==
LOC: HO.US 08:43
PROVIDERS: PCP Family Medicine; Visit Provider Nurse Practitioner Family
DX: R97.20 Elevated prostate specific antigen [PSA] (principal)
CPT/HCPCS: 76770

== ENCOUNTER → 2025-09-18 08:45 | Outpatient (BNV) | payer MEDICARE, BC, SELFPAY | PROVIDERS: PCP Family Medicine; Visit Provider Radiology Diagnostic Radiology | DX: R97.20 Elevated prostate specific antigen [PSA] (principal) | CPT/HCPCS: 76770 ==

== ENCOUNTER 2025-09-22 07:42 | Outpatient (REF) | payer MEDICARE, BC, SELFPAY ==
[2025-09-22 10:56] LABS: PSA,Total (Free>4and<10) 3.31 ng/mL (0.00-4.00)
== END 2025-09-22 07:43 | disposition home or self-care (01) ==
LOC: HO.HMGCLDS 07:42
PROVIDERS: PCP Family Medicine; Visit Provider Nurse Practitioner Family
DX: Z12.5 Encounter for screening for malignant neoplasm of prostate (principal); R97.20 Elevated prostate specific antigen [PSA]
CPT/HCPCS: 36415; 84153

== ENCOUNTER 2025-10-05 07:22 | Outpatient (AMB) | payer MEDICARE, BC, SELFPAY ==
--- NOTE | 2025-10-05 07:22 | MHC.OFFVIS ---
Intake Visit Reasons: 3M PSA/ US follow up Intake Note: Patient is present for ELEVATED PSA Urology Medication:NONE Antibiotic Allergy:NONE Blood Thinner:NONE Labs done 09/22/25 : Total PSA 3.31 Imaging:Retroperitoneum US 09/18/25 L[employer] C[employer]er Required: No Accompanied by: Self / Same As Patient Allergies No Known Allergies Allergy (Verified 10/05/25 07:24) HPI Comments Details: Hang is a very pleasant 65-year-old male patient of Dr. Humphreys. He is being followed up on today via video telehealth. Of note, patient was seen approximately 3 months ago as a new patient for an elevated PSA at which time redraw of PSA was ordered as well as a retroperitoneal ultrasound. These results were reviewed and communicated with the patient today. 10/10 bilateral kidneys are normal in parenchymal echotexture and thickness. No renal masses, calculi, and or hydronephrosis noted bilaterally. The urinary bladder is unremarkable. Prostate measures approximately 48 mL. PSAs are as follows: PSA 09/05 3.1, 02/07 4.5, 05/10 5.2, 10/10 3.3 Discussed at length potential causes of labile in elevated PSA. We did discuss semi enlarged prostate noted on recent imaging. He denies any known family history of prostate cancer. He denies any bothersome urinary issues or concerns. He does feel he has had changes to his urinary stream however is managing this well independently. We did discuss further treatment options of enlarged prostate and risks and benefits of these treatment options. He denies urinary urgency, urinary frequency, incontinence, nocturia, hematuria, dysuria, foul smelling urine, flank pain, fever, and or chills. He is happy with his current voiding parameters. All questions were answered. He otherwise offers no other issues or concerns at this time. [facility] Medical History Amputation of left index finger Surgical History H/O colonoscopy History of amputation of finger of left hand Hx of tonsillectomy Family History (Updated 02/03/25 @ 15:51 by Shantel Leonardo CMA) Father Cancer Social History (Updated 02/03/25 @ 15:51 by Shantel Leonardo CMA) Housing: House Are you a primary health and social care teacher to a significant other at home: No Do you presently have visiting nurse or other home services: No Alcohol intake: current Alcohol intake frequency: does not drink Patient Tobacco Use Status: Never used Tobacco e-Cigarette/Vaping Use: Never Used Second Hand Smoke Exposure: No service: No Current occupational status: employed Current occupation: construction Current occupational exposures/hazards: No Cognitive needs: No Hearing needs: Yes Vision needs: No Review of Systems Const All systems reviewed & are unremarkable except as noted in HPI and below Physical Exam Const General: cooperative, healthy appearing, comfortable, no acute distress, well developed, alert and awake Orientation/consciousness: patient oriented x3 Resp Effort & Inspection: normal respiratory effort and able to speak in complete sentences Neuro General: patient oriented x3 Psych Appearance: grossly normal and well kempt Speech and movement: Clear speech present Attitude: cooperative Thought content: Normal thought content present Insight: Fair insight present (Psych) Judgement: Fair judgement present (Psych) Telehealth Telehealth Telehealth Platform: [employer] Location of provider rendering services: practice address Location of patient: address on file Patient Identification confirmed using: Name, : Yes Telehealth method: video Patient verbally consented to treatment: Yes Patient verbally consented to billing insurance company: Yes Patient informed of any privacy concerns related to visit: Yes Minutes spent on Phone/Video with Pt.: 15 Results Reviewed Results Reviewed: Date of Service: 09/18/25 Procedure(s): US retroperitoneal comp FINDINGS: Right kidney: The right kidney measures 10.5 x 6.3 x 5.5 cm. Renal parenchymal echotexture and thickness are normal. There are no masses. There is no hydronephrosis or renal calculi. Left Kidney: The left kidney measures 10.7 x 5.7 x 5.4 cm. Renal parenchymal echotexture and thickness are normal. There are no masses. There is no hydronephrosis or renal calculi. The urinary bladder is unremarkable. Bilateral ureteral jets are identified. Before voiding, the urinary bladder measured 9.0 x 8.6 x 6.5 cm, for an estimated volume of 261 mL. After voiding, the urinary bladder measured 5.3 x 4.7 x 4.2 cm, for an estimated volume of 54 mL. The prostate measures 5.1 x 3.6 x 5.0 cm, for an estimated volume of 47.8 mL. IMPRESSION: 1. Unremarkable retroperitoneal ultrasound. 2. Post void bladder residual of 54 mL. 3. Prostate volume of 47.8 mL. Assessment & Plan Assessment & Plan (1) Elevated PSA: Code(s): R97.20 - Elevated prostate specific antigen [PSA] Category: Medical (2) Enlarged prostate: Code(s): N40.0 - Benign prostatic hyperplasia without lower urinary tract symptoms Category: Medical Plan Most recent PSA results reviewed with the patient today; as noted above. Most recent retroperitoneal ultrasound results reviewed with the patient today; as noted above. All questions were answered. He currently denies any bothersome urinary issues or concerns. We did discussed at length further treatment options of enlarged prostate and risks and benefits of these treatment options. All questions were answered. Will continue with surveillance monitoring. Will obtain PSA in 6 months. Follow-up in 6 months with PSA and PVR; or sooner with any issues, concerns, and or questions. Patient Instructions: The patient had an opportunity to ask questions regarding the treatment plan. All questions were answered. Physical exam, labs, and imaging were discussed and reviewed in detail. As well as risks, benefits, and discussion of treatment choices. No major barriers to understanding were identified. The patient expressed understanding and agreement with the above treatment plan. The patient was made aware they should contact our office by phone for worsening of their current condition, the appearance of new symptoms, or with any questions or concerns. Compliance is encouraged with any medications and follow up testing that is ordered. It is a privilege to be allowed the opportunity to participate in? your urological care.? Again, if you have any questions or concerns If you have any questions or concerns please do not hesitate to contact me. The office is [phone]. This note is constructed using voice recognition software. While every effort has been made to ensure accuracy cook roast errors may have been included. Yours sincerely, ANTONETTE Villalpando Coding Level of Care Code Tele Est Pt Level 3 (99789) Complex EM visit Add On G2211 Diagnoses Elevated PSA R97.20 Enlarged prostate N40.0
== END 2025-10-05 08:40 | disposition home or self-care (01) ==
LOC: HO.HUSH 07:22
PROVIDERS: PCP Family Medicine; Visit Provider Nurse Practitioner Family
DX: R97.20 Elevated prostate specific antigen [PSA] (principal); N40.0 Benign prostatic hyperplasia without lower urinary tract symptoms
CPT/HCPCS: 99213; G2211